=== PATIENT | male | born 1945 | race Caucasian/White ===

== ENCOUNTER → 2018-04-01 | Outpatient (CLI) | payer OTHER ==
[~2018-04-01] MED LIST: ASPI81TA28 PO; ATEN-173 PO; BROM0.07 OPR; CIPR0.3S4 OPR; CLR10 PO; MULT-506 PO; PRED1SUS3 OPR
[2018-04-01 13:19] LABS: BLOOD UREA NITROGEN 19 mg/dl (7-18); CALCIUM 9.1 mg/dl (8.5-10.1); CARBON DIOXIDE 29 mmol/L (21-32); CREATININE 1.45 mg/dl (0.60-1.40); GLUCOSE 109 mg/dl (70-99); POTASSIUM 4.2 mmol/L (3.5-5.1); SODIUM 140 mmol/L (136-145)
== END | disposition home or self-care (01) ==
LOC: C.LABMFLN 10:29
PROVIDERS: ATTEND Family Medicine
DX: I10 Essential (primary) hypertension (principal)